=== PATIENT | female | born 1935 | race Caucasian/White ===

== ENCOUNTER 2016-11-20 17:57 | Emergency (ER) | payer MEDICARE ==
[2016-11-20 18:26] LABS: Hematocrit 39.6 % (37.0-47.0); Hemoglobin 13.1 gm/dL (12.5-16.0); Mean Cell Volume 91.2 fl (78-100); Mean Corpuscular Hemoglobin 30.2 pg (27-31); Mean Corpuscular Hgb Conc 33.1 g/dl (32-36); Mean Platelet Volume 10.4 fl (6.0-9.5); Neutrophil % 86.9 % (42-75.0); Platelet Count 179 K/mm3 (150-450); Red Blood Count 4.34 M/mm3 (4.2-5.4); Red Cell Distribution Width 13.3 % (11.5-14.0)
[2016-11-20] MEDS ORDERED: ALBUTEROL SULFATE 2.5 MG/0.5 ML VIAL.NEB IH ONE ×2 (18:31→18:33)
--- NOTE | 2016-11-20 18:35 | ERNOTE ---
Medical Problem HPI - General Chief Complaint: General Assessment Time Seen by Provider: 11/20/16 18:21 Source: patient Exam Limitations: no limitations - Immun/Allergies/Home Medications Immunizations: IMMUNIZATION HX Immunizations Up to Date Yes History of Influenza Vaccine Yes Hx Pneumococcal Vaccination Yes Allergies/Adverse Reactions: Allergies bee venom (honey bee) Allergy (Verified 11/20/16 18:06) Home Medications: HOME MEDICATIONS Aspirin [Aspirin Enteric Coated] 1 tab PO DAILY 08/09/15 [Last Taken 08/09/15] Calcium Carb/Mag Oxide/Zinc Ox 1 tab PO DAILY 08/09/15 [Last Taken 08/09/15] Cholecalciferol (Vitamin D3) [Vitamin D3] 1 tab PO DAILY 08/09/15 [Last Taken ] Fish Oil 1,000 mg Capsule 3 cap PO DAILY 08/09/15 [Last Taken 08/09/15] Niacin 250 mg PO DAILY 08/09/15 [Last Taken 08/09/15] Pravastatin Sodium [Pravachol] 20 mg PO DAILY 08/09/15 [Last Taken 08/09/15] Vitamin B-12 1 tab PO DAILY 08/09/15 [Last Taken 08/09/15] ALPRAZolam [Xanax] 0.25 mg PO TID PRN #0 tablet 08/10/15 [Last Taken Unknown] Albuterol Sulfate/Ipratropium [Duoneb 2.5-0.5MG/3ML Soln] 3 ml IH Q6HRT #120 nebu 08/10/15 [Last Taken Unknown] Levofloxacin [Levaquin] 250 mg PO DAILY@1100 10 Days 08/10/15 [Last Taken Unknown] Lisinopril [Zestril] 5 mg PO DAILY #30 tablet 08/10/15 [Last Taken Unknown] Metoprolol Tartrate [Lopressor] 50 mg PO Q12H 30 Days 08/10/15 [Last Taken Unknown] Warfarin Sodium [Coumadin] 5 mg PO DAILY #30 tablet 08/10/15 [Last Taken Unknown ] Furosemide [Lasix] 20 mg PO DAILY #10 tablet 11/20/16 [Last Taken Unknown] predniSONE [Prednisone] 3 tab PO DAILY #12 tab 11/20/16 [Last Taken Unknown] - History of Present History Narrative: Patient started with a slight cough last night and this morning around 08:00 with vomiting and diarrhea. She vomited a small amount twice, since then has been able to keep some fluids down, brown liquid diarrhea x5, abdominal fullness , no real pain. She has a history of COPD, not smoked in three years, not using any breathing treatments currently. While sitting in bed O2 sat 88-91% on RA Date (Duration): 11/20/16 Time (Timing): 08:00 Review of Systems - Review of Systems Constitutional: Absent: recent illness, fever ENT: Present: nasal drainage. Absent: sore throat Respiratory: Present: See HPI, cough. Absent: shortness of breath Cardiology: Absent: chest pain Gastrointestinal/Abdominal: Present: See HPI, nausea, vomiting, diarrhea Genitourinary: Absent: frequency, dysuria Neurological: Absent: headache - Patient's Past Medical History Patient History - Medical: Anxiety, Arthritis Patient History - Cardiac/Respiratory: Atrial Fibrillation, CHF, COPD, Hyperlipidemia, Pneumonia Patient History - Cancer: No Hx of Cancer Patient History - Surgical Procedures: Other Patient History - Other: None - Family History Brother Family History - Cardiac/Respiratory: Coronary Heart Disease Sister Family History - Cardiac/Respiratory: Coronary Heart Disease mom Family History - Medical: Family History - Cardiac/Respiratory: Cardiac Arrest dad Family History - Medical: - Social History Living Situations: home Abuse History: No History of abuse Psych History: No pertinent hx Smoking Status: Former smoker - quit 2013 Alcohol Use: none Drug Use: none - Immunizations Immunizations Up to Date: Yes Hx Pneumococcal Vaccination: Yes History of Influenza Vaccine: Yes Physical Exam - Physical Exam General Appearance: Present: wd/wn, alert, no apparent distress Eye Exam: Normal inspection: bilateral Ears, Nose, Throat: Present: normal pharynx Respiratory: Present: no respiratory distress, no accessory muscle use, decreased breath sounds, expiration (prolonged) Cardiovascular/Chest: Present: irregularly irregular, systolic murmur Gastrointestinal/Abdominal: Present: nontender, nondistended, soft, abnormal bowel sounds - increased Extremity Exam: Present: no edema Neurological Exam: Present: alert, oriented, normal mood/affect Skin Exam: Present: normal color, warm/dry ED Progress - Results and Orders Patient's Lab Results:: I have reviewed the patient's lab results. - Vital Signs Patient's Vital Signs:: I have reviewed the patient's vital signs. Vital Signs: Vital Signs 11/20/16 18:01 Temperature 37.2 C Pulse Rate 99 Respiratory 16 Rate Blood Pressure 98/69 O2 Sat by Pulse 93 Oximetry - X-Ray X-Ray #1 X-Ray: chest - hyperinflation, chronic no acute changes Interpretation: Interp. by me X-Ray #2 X-Ray: abdomen - non specific bowel gas pattern Interpretation: Reviewed by me - Progress/Reassessment Chief Complaint: General Assessment Progress Note-Subjective: 11/20/16 18:59 doesn't feel any different after neb treatment. O2sat 88-90% on RA 11/20/16 19:29 discussed results with patient, offered admission for COPD and CHF as O2 sat low , patient would like to go home as she has not had diarrhea in seven hours, tolerating po Departure - Departure Clinical Impression: COPD exacerbation CHF (congestive heart failure) Qualifiers: Congestive heart failure type: unspecified congestive heart failure type Congestive heart failure chronicity: unspecified congestive heart failure chronicity Qualified Code(s): I50.9 - Heart failure, unspecified Disposition: Home self-care Condition: Good Instructions: Chronic Obstructive Pulmonary Disease, [id number], Heart Failure, [id number] Additional Instructions: start the lasix and prednisone in the morning use your breathing treatments as needed call Dr Echeverria's office in the morning for follow up Referrals: Mark Echeverria MD [Staff Physician] - Prescriptions: Furosemide [Lasix] 20 mg PO DAILY #10 tablet predniSONE [Prednisone] 3 tab PO DAILY #12 tab
[2016-11-20 18:40] LABS: Albumin * 3.7 gm/dl (3.4-5.0); Anion Gap 13.6 mmol/L (6.8-13.8); BUN/Creatinine Ratio 14.9 (9.0-21.6); Bilirubin, Total 0.7 mg/dL (0.0-1.1); Calcium * 9.1 mg/dL (7.9-10.9); Carbon Dioxide 27.3 mmol/L (24-32.6); Potassium 4.9 mmol/L (3.4-4.6); Total Protein 7.6 gm/dL (6.2-8.2)
[2016-11-20] MEDS ORDERED: predniSONE 20 MG TABLET PO ONE (19:29)
[2016-11-20] MEDS ORDERED: predniSONE 20 MG TABLET ONE (19:31)
[2016-11-20 19:44] VITALS: BP 115/49
== END 2016-11-20 19:42 | disposition home or self-care (01) ==
LOC: ER 17:57
DX: J44.1 Chronic obstructive pulmonary disease with (acute) exacerbation (principal); I50.9 Heart failure, unspecified